=== PATIENT | male | born 1950 | race Caucasian/White ===

== ENCOUNTER 2018-03-20 11:53 | Day surgery (SDC) | payer OTHER ==
[~2018-03-20] VITALS: Ht 167.6 cm; Wt 77.9 kg
== END 2018-03-20 13:54 | disposition home or self-care (01) ==
LOC: ORSCSDS 11:53
PROVIDERS: Ophthalmology
PROC: 08RK3JZ Replacement of Left Lens with Synthetic Substitute, Percutaneous Approach (ICD-10-PCS; principal; 2018-03-20 13:30)
DX: H25.12 Age-related nuclear cataract, left eye (principal)
CPT/HCPCS: J2250; J3010; J7040; V2632

== ENCOUNTER 2019-12-29 10:59 | Day surgery (SDC) | payer OTHER ==
[~2019-12-29] VITALS: Ht 167.6 cm; Wt 73.9 kg
[~2019-12-29 10:59] MED LIST: COQ-10100 MG PO; FISH OIL 1,0001 EAC1 PO; MULTIPLE VITAM1 EACH PO
== END 2019-12-29 13:10 | disposition home or self-care (01) ==
LOC: ORSCSDS 10:59
PROVIDERS: Internal Medicine Gastroenterology
PROC: 0DBK8ZX Excision of Ascending Colon, Via Natural or Artificial Opening Endoscopic, Diagnostic (ICD-10-PCS; principal; 2019-12-29 13:00)
DX: Z12.11 Encounter for screening for malignant neoplasm of colon (principal); D12.2 Benign neoplasm of ascending colon; K57.30 Diverticulosis of large intestine without perforation or abscess without bleeding; K64.8 Other hemorrhoids; Z86.010 Personal history of colon polyps
CPT/HCPCS: 88305; J2704; J7120

== ENCOUNTER → 2020-05-12 | Outpatient (CLI) | payer OTHER | END | disposition home or self-care (01) | LOC: LAB 08:21 → LAB SHORT 08:21 | DX: B35.1 Tinea unguium (principal) | CPT/HCPCS: 88305; 88312 ==

== ENCOUNTER 2025-03-09 09:54 | Day surgery (SDC) | payer OTHER ==
[~2025-03-09] VITALS: Ht 167.6 cm; Wt 73.0 kg
[~2025-03-09 09:54] MED LIST changes: +AMLO5; +LEVSOD112; +Lactated Ringer's 1,000 ML IV ONE; +TELM20; +propofoL 50 ML IV ONE
[2025-03-09] MEDS ORDERED: OCUFLOX511 (10:14)
[2025-03-09] MEDS ORDERED: RESVERATIN PLU1 EACH (10:14)
[2025-03-09] MEDS ORDERED: ERGO400 (10:14)
[2025-03-09] MEDS ORDERED: GARLIC200 MG (10:14)
[2025-03-09] MEDS ORDERED: PRED FORTE5 ML (10:14)
[2025-03-09] MEDS ORDERED: Vitamin B-12100 MCG (10:15)
[2025-03-09] MEDS ORDERED: Saw Palmetto160 MG (10:15)
[2025-03-09] MEDS ORDERED: TOCO1000 (10:15)
[2025-03-09] MEDS ORDERED: Lactated Ringer's 1,000 ML IV ONE (11:00)
[2025-03-09 11:58] VITALS: BP 134/91
== END 2025-03-09 12:01 | disposition home or self-care (01) ==
LOC: ORSCSDS 09:54
PROVIDERS: Internal Medicine Gastroenterology
PROC: 0DBL8ZX Excision of Transverse Colon, Via Natural or Artificial Opening Endoscopic, Diagnostic (ICD-10-PCS; principal; 2025-03-09 11:15)
DX: Z12.11 Encounter for screening for malignant neoplasm of colon (principal); Z80.0 Family history of malignant neoplasm of digestive organs; Z86.0101 Personal history of adenomatous and serrated colon polyps; D12.3 Benign neoplasm of transverse colon; K57.30 Diverticulosis of large intestine without perforation or abscess without bleeding; K64.4 Residual hemorrhoidal skin tags; I10 Essential (primary) hypertension
CPT/HCPCS: 88305; J2704; J7120